=== PATIENT | female | born 1980 | race African-American/Black ===

== ENCOUNTER 2017-12-20 17:07 | Emergency (ER) | payer OTHER ==
[~2017-12-20] VITALS: Ht 160 cm; Wt 63.0 kg
[2017-12-20] MEDS ORDERED: METHOCARBAMOL 500MG TABLET PO ONE (21:00)
[2017-12-20] MEDS ORDERED: IBUPROFEN 600MG TABLET PO ONE (21:00)
[2017-12-20 21:19] VITALS: BP 134/75
== END 2017-12-20 21:59 | disposition home or self-care (01) ==
LOC: ER 18:47
DX: S13.4XXA Sprain of ligaments of cervical spine, initial encounter (principal); S39.012A Strain of muscle, fascia and tendon of lower back, initial encounter; E03.9 Hypothyroidism, unspecified; V89.2XXA Person injured in unspecified motor-vehicle accident, traffic, initial encounter; Y93.9 Activity, unspecified; Y92.9 Unspecified place or not applicable
CPT/HCPCS: 99283